=== PATIENT | male | born 1980 | race Caucasian/White ===

== ENCOUNTER 2021-01-30 02:30 | Emergency (ER) | payer OTHER ==
[2021-01-30 02:38] VITALS: BP 140/99; PULSE 120; TEMP 98; BMI 23.0
[2021-01-30] MEDS ORDERED: ACETAMINOPHEN 325 MG TABLET (FP) PO ONE (03:08)
[2021-01-30] MEDS ORDERED: ACETAMINOPHEN 325 MG TABLET (FP) ONE (03:13)
== END 2021-01-30 04:04 | disposition left against medical advice (07) ==
LOC: JER 02:30
DX: M25.562 Pain in left knee (principal); V49.40XA Driver injured in collision with unspecified motor vehicles in traffic accident, initial encounter
CPT/HCPCS: 99283-25